=== PATIENT | female | born 1990 | race Caucasian/White ===

== ENCOUNTER 2021-02-10 11:28 | Emergency (ER) | payer BC ==
[2021-02-10 11:58] VITALS: BP 130/74; PULSE 98
--- NOTE | 2021-02-10 13:50 | EDM.PDOC ---
ED HPI GENERAL MEDICAL PROBLEM - General Chief Complaint: ENT Problem Stated Complaint: TOOTH COMPLAINT\ CHEEK SWELLING Time Seen by Provider: 02/10/21 11:36 Source of Information: Reports: Patient History Limitations: Reports: No Limitations - History of Present Illness INITIAL COMMENTS - FREE TEXT/NARRATIVE: 30-year-old female presents the emergency department today with complaints of dental pain and abscess after being on clindamycin for 10 days. Per the patient's report over the past 1 year she has been treated for dental abscess on the lower right side of her jaw 3 times. She states that she saw her dentist approximately 10 days ago and was started on clindamycin 300 mg 4 times daily. She states that this morning she woke up with swelling noted to her right jaw and went to see her dentist. He immediately told her to come to the emergency department. She denies any fever, chills, nausea, vomiting or diarrhea associated with the swelling/abscess. 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 ED EXAM, ENT - Physical Exam Exam: See Below Exam Limited By: No Limitations General Appearance: Alert, WD/WN, Mild Distress Ears: Normal External Exam, Hearing Grossly Normal Nose: Normal Inspection Mouth/Throat: Normal Gums (Right lower lateral gumline), Normal Lips, Normal Oropharynx, Dental Abcess (Right lower jaw), Dental Tenderness (Right lower jaw), Other (Dental caries noted to tooth 48 and 47) Head: Atraumatic Neck: Normal Inspection, Supple Respiratory/Chest: No Respiratory Distress, Lungs Clear, Normal Breath Sounds, No Accessory Muscle Use, Chest Non-Tender Cardiovascular: Normal Peripheral Pulses, Regular Rate, Rhythm, No Edema, No Murmur GI/Abdominal: Normal Bowel Sounds, Soft, Non-Tender, No Distention (Female) Exam: Deferred Rectal (Female) Exam: Deferred Back: Normal Inspection Extremities: Normal Inspection Neurological: Alert, Oriented, Normal Cognition Psychiatric: Normal Affect, Normal Mood Skin: Warm, Dry, Intact, Normal Color, No Rash Lymphatic: No Adenopathy Course - Vital Signs Text/Narrative:: As stated above, patient presents with dental abscess to the right jaw. Originating from dental caries to tooth #47. Patient did see her dentist this morning and he told her to be evaluated in the emergency department. As stated above the patient has been taking clindamycin 300 mg 4 times daily for the past 10 days. Developed swelling to her right lower jaw this morning. Upon exam, the patient does have significant swelling noted to the right lower jaw. There is no erythema noted however. She is afebrile. She states it is tender and she has tried ice the area however this is not helped with the swelling. She is not having any shortness of breath or difficulty swallowing. I have ordered lab studies to include a CBC, CMP, magnesium and a C-reactive protein. Discussed the case with Dr. Hanley and he does not recommend imaging as it will not change the course of treatment. Of note, patient does have a significant penicillin allergy. Last Recorded V/S: Last Vital Signs Temp 98.3 F 02/10/21 11:30 Pulse 98 02/10/21 11:30 Resp 18 02/10/21 11:30 BP 130/74 02/10/21 11:30 Pulse Ox 97 02/10/21 11:30 - Orders/Labs/Meds Labs: Laboratory Tests 02/10/21 02/10/21 Range/Units 12:30 12:30 WBC 11.31 H (3.98-10.04) K/mm3 RBC 4.91 (3.98-5.22) M/mm3 Hgb 15.0 D (11.2-15.7) gm/dl Hct 45.6 H (34.1-44.9) % MCV 92.9 D (79.4-94.8) fl MCH 30.5 (25.6-32.2) pg MCHC 32.9 (32.2-35.5) g/dl RDW Std Deviation 46.8 H (36.4-46.3) fL Plt Count 213 (182-369) K/mm3 MPV 11.3 (9.4-12.3) fl Neut % (Auto) 73.2 H (34.0-71.1) % Lymph % (Auto) 16.4 L (19.3-51.7) % [place] % (Auto) 9.3 (4.7-12.5) % Eos % (Auto) 0.7 (0.7-5.8) Baso % (Auto) 0.2 (0.1-1.2) % Neut # (Auto) 8.29 H (1.56-6.13) K/mm3 Lymph # (Auto) 1.85 (1.18-3.74) K/mm3 [place] # (Auto) 1.05 H (0.24-0.36) K/mm3 Eos # (Auto) 0.08 (0.04-0.36) K/mm3 Baso # (Auto) 0.02 (0.01-0.08) K/mm3 Sodium 136 (136-145) mEq/L Potassium 3.5 (3.5-5.1) mEq/L Chloride 103 (98-107) mEq/L Carbon Dioxide 24 (21-32) mEq/L Anion Gap 12.5 (5-15) BUN 6 L (7-18) mg/dL Creatinine 0.7 (0.55-1.02) mg/dL Est Cr Clr Drug Dosing 112.20 mL/min Estimated GFR (MDRD) > 60 (>60) mL/min BUN/Creatinine Ratio 8.6 L (14-18) Glucose 93 (70-99) mg/dL Calcium 8.5 (8.5-10.1) mg/dL Magnesium 1.9 (1.8-2.4) mg/dL Total Bilirubin 0.6 (0.2-1.0) mg/dL AST 18 (15-37) U/L ALT 28 (14-59) U/L Alkaline Phosphatase 52 (46-116) U/L C-Reactive Protein 0.4 (<1.0) mg/dL Total Protein 8.4 H (6.4-8.2) g/dl Albumin 4.4 (3.4-5.0) g/dl Globulin 4.0 gm/dL Albumin/Globulin Ratio 1.1 (1-2) Meds: Medications Discontinued Medications Generic Name Dose Route Start Last Admin Trade Name Ad PRN Reason Stop Dose Admin Amoxicillin/Clavulanate Potassium 1 tab 02/10/21 14:47 02/10/21 15:01 Amoxicillin/Clavulanate K 875-125 Mg Tab PO 02/10/21 14:48 1 tab ONETIME ONE Administration Ketorolac Tromethamine 30 mg 02/10/21 14:43 02/10/21 15:01 Ketorolac 30 Mg/Ml Sdv IVPUSH 02/10/21 14:44 30 mg ONETIME ONE Administration - Re-Assessments/Exams Free Text/Narrative Re-Assessment/Exam: 02/10/21 14:43 Patient does have penicillin listed as an allergy. Initially discussed with her and she tells me that both of her parents have severe anaphylactic reaction to penicillin. And tells me upon further evaluation that she just spoke with her father on the phone and he tells her he has never had a reaction to penicillin and is not allergic. She states that her parents when she was 8 and this is what her mother had told her in the past. 02/10/21 14:46 Hematology reveals a WBC of 11.31, hemoglobin 15.0, hematocrit 45.6, platelet count 213 Chemistry reveals a sodium of 136, potassium 3.5, anion gap 12.5, BUN 6, creatinine 0.7, magnesium 1.9, C-reactive protein 0.4 Discussed the case with Dr. Hanley, and he recommends starting the patient on Augmentin 875 mg twice daily for 10 days. Patient will need close follow-up with her primary care provider. 02/10/21 14:57 Discussed the plan with the patient and she is agreeable to this. We will give her 1 Augmentin tablet and monitor her for approximately an hour and then she will be discharged home. 02/10/21 16:09 Patient tolerated the Augmentin without any signs or symptoms of allergic reaction. She will be discharged home with strong return precautions. Departure - Departure Time of Disposition: 16:10 Disposition: Home, Self-Care 01 Condition: Good Clinical Impression: Dental abscess - Discharge Information Prescriptions: Amoxicillin/Potassium Clav [Augmentin 875-125 Tablet] 1 each PO BID #19 tablet Instructions: Dental Abscess, [id number] Referrals: Estrella Tavarez MD [Primary Care Provider] - Forms: ED Department Discharge Additional Instructions: You were seen in the emergency department today with complaints of a dental abscess despite being on antibiotics for 10 days time. Lab studies were completed and they were essentially unremarkable. Your white blood cell count was just slightly elevated and your inflammatory markers were normal. You were given pain medication while in the emergency department as well as Augmentin which is an oral antibiotic. You tolerated this well without any signs of allergic reaction. I have sent a prescription to your pharmacy for Augmentin 875 mg to be taken twice daily with food for the next 10 days. You will need to follow-up with your primary care provider for reevaluation once you have completed your course of antibiotics. Should you develop any signs or symptoms of allergic reaction such as hives or difficulty breathing. Return to the emergency department immediately. Should you develop fever, chills, nausea, vomiting or diarrhea you should also be reevaluated at that time. Sepsis Event Note (ED) - Evaluation Sepsis Screening Result: No Definite Risk - Focused Exam Vital Signs: Vital Signs Temp Pulse Resp BP Pulse Ox 02/10/21 11:30 98.3 F 98 18 130/74 97
[2021-02-10] MEDS ORDERED: Ketorolac 30 MG/ML SDV IVPUSH ONE (14:43)
[2021-02-10] MEDS ORDERED: Amoxicillin/Clavulanate K 875-125 MG Tab PO ONE (14:47)
== END 2021-02-10 16:20 | disposition home or self-care (01) ==
LOC: JD.ED 11:28
DX: K04.7 Periapical abscess without sinus (principal); K02.9 Dental caries, unspecified; Z88.0 Allergy status to penicillin; Z88.8 Allergy status to other drugs, medicaments and biological substances
CPT/HCPCS: 36415; 80053; 83735; 85025; 86140; 96374; 99283; A9270; J1885

== ENCOUNTER 2021-02-18 21:24 | Emergency (ER) | payer BC ==
[2021-02-18 22:30] VITALS: BP 116/72
[2021-02-18] MEDS ORDERED: Sodium Chloride 0.9% 10 ML Syringe FLUSH PRN (23:10)
[2021-02-18] MEDS ORDERED: Ondansetron 4 MG/2 ML SDV IVPUSH ONE (23:10)
[2021-02-18] MEDS ORDERED: HYDROmorphone 0.5 MG/0.5 ML Syringe IVPUSH ONE (23:11)
[2021-02-18] MEDS ORDERED: Ketorolac 30 MG/ML SDV IVPUSH ONE (23:11)
[2021-02-18] MEDS ORDERED: Sodium Chloride 0.9% 1,000 ML IV SCH (23:15)
--- NOTE | 2021-02-19 01:23 | EDM.PDOC ---
ED HPI GENERAL MEDICAL PROBLEM - General Chief Complaint: Abdominal Pain Stated Complaint: ABDOMINAL PAIN Time Seen by Provider: 02/18/21 22:55 Source of Information: Reports: Patient History Limitations: Reports: No Limitations - History of Present Illness INITIAL COMMENTS - FREE TEXT/NARRATIVE: The patient presents with left flank and left sided abdominal pain. She has some nausea with it. She has no dysuria or hematuria. She has no history of kidney stones before. She says the pain comes in waves like contractions. She has no diarrhea. She still has her appendix and gallbladder. She has no fever, chills, cough, chest pain or shortness of breath. Onset: Sudden Duration: Hour(s): Location: Reports: Abdomen, Back Quality: Reports: Sharp Severity: Severe Improves with: Reports: None Worsens with: Reports: None Associated Symptoms: Reports: Nausea/Vomiting. 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: - Infectious Disease History Infectious Disease History: Reports: None - Past Surgical History HEENT Surgical History: Reports: Oral Surgery, Other (See Below) Other HEENT Surgeries/Procedures: wisdom teeth removed; root canal done due to abcessed tooth Female Surgical History: Reports: Section Musculoskeletal Surgical History: Reports: Other (See Below) Other Musculoskeletal Surgeries/Procedures:: none Social & Family History - Family History Family Medical History: No Pertinent Family History Oncologic: Reports: Colon - Tobacco Use Tobacco Use Status *Q: Current Every Day Tobacco User Years of Tobacco use: 12 Packs/Tins Daily: 0.5 - Caffeine Use Caffeine Use: Reports: Coffee - Recreational Drug Use Recreational Drug Use: No - Living Situation & Occupation Living situation: Reports: ED ROS GENERAL - Review of Systems Review Of Systems: See Below Constitutional: Reports: No Symptoms HEENT: Reports: No Symptoms Respiratory: Reports: No Symptoms Cardiovascular: Reports: No Symptoms Endocrine: Reports: No Symptoms GI/Abdominal: Reports: Abdominal Pain, Nausea. Denies: Diarrhea, Vomiting : Reports: Flank Pain Musculoskeletal: Reports: Back Pain ED EXAM, GI/ABD - Physical Exam Exam: See Below Exam Limited By: No Limitations General Appearance: Alert, No Apparent Distress Ears: Normal External Exam Nose: Normal Inspection Head: Atraumatic, Normocephalic Neck: Normal Inspection Respiratory/Chest: No Respiratory Distress, Lungs Clear, Normal Breath Sounds Cardiovascular: Regular Rate, Rhythm, No Edema, No Murmur GI/Abdominal Exam: Soft, No Organomegaly, No Mass, Tender (Mild tenderness to the left lower abdomen) Back Exam: No: CVA Tenderness (L) Extremities: Normal Inspection Neurological: Alert, Oriented, No Motor/Sensory Deficits Course - Vital Signs Last Recorded V/S: Last Vital Signs Temp 99.0 F 02/18/21 22:28 Pulse 84 02/18/21 22:28 Resp BP 116/72 02/18/21 22:28 Pulse Ox 100 02/18/21 22:28 - Orders/Labs/Meds Orders: Active Orders 24 hr Category Date Time Status Peripheral IV Care [RC] . DIRECTED Care 02/18/21 23:11 Active Abdomen Pelvis wo Cont [CT] Stat Exams 02/18/21 23:10 Taken Sodium Chloride 0.9% [Normal Saline] 1,000 ml Med 02/18/21 23:15 Active IV ASDIRECTED Sodium Chloride 0.9% [Saline Flush] Med 02/18/21 23:10 Active 10 ml FLUSH ASDIRECTED PRN ED Antiemetic Medication Reflex [OM.PC] Stat Oth 02/18/21 23:10 Ordered Peripheral IV Insertion Adult [OM.PC] Stat Oth 02/18/21 23:10 Ordered Medication Orders Sodium Chloride (Normal Saline) 1,000 mls @ 125 mls/hr IV ASDIRECTED ASHISH Last Admin: 02/18/21 23:42 Dose: 125 mls/hr Documented by: OSIEL Sodium Chloride (Sodium Chloride 0.9% 10 Ml Syringe) 10 ml FLUSH ASDIRECTED PRN PRN Reason: Keep Vein Open Last Admin: 02/18/21 23:42 Dose: 10 ml Documented by: OSIEL Labs: Laboratory Tests 10/04/2902/18/21 02/18/21 Range/Units 23:40 23:40 23:40 WBC 9.04 (3.98-10.04) K/mm3 RBC 4.40 (3.98-5.22) M/mm3 Hgb 13.6 (11.2-15.7) gm/dl Hct 40.1 (34.1-44.9) % MCV 91.1 (79.4-94.8) fl MCH 30.9 (25.6-32.2) pg MCHC 33.9 (32.2-35.5) g/dl RDW Std Deviation 43.7 (36.4-46.3) fL Plt Count 223 (182-369) K/mm3 MPV 10.4 (9.4-12.3) fl Neut % (Auto) 77.7 H (34.0-71.1) % Lymph % (Auto) 10.0 L (19.3-51.7) % [place] % (Auto) 8.2 (4.7-12.5) % Eos % (Auto) 3.7 (0.7-5.8) Baso % (Auto) 0.2 (0.1-1.2) % Neut # (Auto) 7.03 H (1.56-6.13) K/mm3 Lymph # (Auto) 0.90 L (1.18-3.74) K/mm3 [place] # (Auto) 0.74 H (0.24-0.36) K/mm3 Eos # (Auto) 0.33 (0.04-0.36) K/mm3 Baso # (Auto) 0.02 (0.01-0.08) K/mm3 Sodium 139 (136-145) mEq/L Potassium 3.8 (3.5-5.1) mEq/L Chloride 105 (98-107) mEq/L Carbon Dioxide 23 (21-32) mEq/L Anion Gap 14.8 (5-15) BUN 7 (7-18) mg/dL Creatinine 0.6 (0.55-1.02) mg/dL Est Cr Clr Drug Dosing 130.90 mL/min Estimated GFR (MDRD) > 60 (>60) mL/min BUN/Creatinine Ratio 11.7 L (14-18) Glucose 106 H (70-99) mg/dL Calcium 8.6 (8.5-10.1) mg/dL Total Bilirubin 0.4 (0.2-1.0) mg/dL AST 17 (15-37) U/L ALT 22 (14-59) U/L Alkaline Phosphatase 47 (46-116) U/L Total Protein 6.8 (6.4-8.2) g/dl Albumin 3.5 (3.4-5.0) g/dl Globulin 3.3 gm/dL Albumin/Globulin Ratio 1.1 (1-2) Lipase 82 (73-393) U/L HCG, Qual Negative (NEGATIVE) Urine Color (Yellow) Urine Appearance (Clear) Urine pH (5.0-8.0) Ur Specific [place] (1.005-1.030) Urine Protein (Negative) Urine Glucose (UA) (Negative) Urine Ketones (Negative) Urine Occult Blood (Negative) Urine Nitrite (Negative) Urine Bilirubin (Negative) Urine Urobilinogen (0.2-1.0) Ur Leukocyte Esterase (Negative) Urine RBC (0-5) /hpf Urine WBC (0-5) /hpf Ur Squamous Epith Cells (0-5) /hpf Urine Bacteria (FEW) /hpf Urine Mucus (FEW) /hpf 02/19/21 Range/Units 01:09 WBC (3.98-10.04) K/mm3 RBC (3.98-5.22) M/mm3 Hgb (11.2-15.7) gm/dl Hct (34.1-44.9) % MCV (79.4-94.8) fl MCH (25.6-32.2) pg MCHC (32.2-35.5) g/dl RDW Std Deviation (36.4-46.3) fL Plt Count (182-369) K/mm3 MPV (9.4-12.3) fl Neut % (Auto) (34.0-71.1) % Lymph % (Auto) (19.3-51.7) % [place] % (Auto) (4.7-12.5) % Eos % (Auto) (0.7-5.8) Baso % (Auto) (0.1-1.2) % Neut # (Auto) (1.56-6.13) K/mm3 Lymph # (Auto) (1.18-3.74) K/mm3 [place] # (Auto) (0.24-0.36) K/mm3 Eos # (Auto) (0.04-0.36) K/mm3 Baso # (Auto) (0.01-0.08) K/mm3 Sodium (136-145) mEq/L Potassium (3.5-5.1) mEq/L Chloride (98-107) mEq/L Carbon Dioxide (21-32) mEq/L Anion Gap (5-15) BUN (7-18) mg/dL Creatinine (0.55-1.02) mg/dL Est Cr Clr Drug Dosing mL/min Estimated GFR (MDRD) (>60) mL/min BUN/Creatinine Ratio (14-18) Glucose (70-99) mg/dL Calcium (8.5-10.1) mg/dL Total Bilirubin (0.2-1.0) mg/dL AST (15-37) U/L ALT (14-59) U/L Alkaline Phosphatase (46-116) U/L Total Protein (6.4-8.2) g/dl Albumin (3.4-5.0) g/dl Globulin gm/dL Albumin/Globulin Ratio (1-2) Lipase (73-393) U/L HCG, Qual (NEGATIVE) Urine Color Yellow (Yellow) Urine Appearance Clear (Clear) Urine pH 6.5 (5.0-8.0) Ur Specific [place] 1.015 (1.005-1.030) Urine Protein Negative (Negative) Urine Glucose (UA) Negative (Negative) Urine Ketones Negative (Negative) Urine Occult Blood Negative (Negative) Urine Nitrite Negative (Negative) Urine Bilirubin Negative (Negative) Urine Urobilinogen 0.2 (0.2-1.0) Ur Leukocyte Esterase Negative (Negative) Urine RBC Not seen (0-5) /hpf Urine WBC Not seen (0-5) /hpf Ur Squamous Epith Cells 0-5 (0-5) /hpf Urine Bacteria Not seen (FEW) /hpf Urine Mucus Few (FEW) /hpf Meds: Medications Generic Name Dose Route Start Last Admin Trade Name Freq PRN Reason Stop Dose Admin Sodium Chloride 1,000 mls @ 125 mls/hr 02/18/21 23:15 02/18/21 23:42 Normal Saline IV 125 mls/hr ASDIRECTED ASHISH Administration Sodium Chloride 10 ml 10/12/21 23:10 02/18/21 23:42 Sodium Chloride 0.9% 10 Ml Syringe FLUSH 10 ml ASDIRECTED PRN Administration Keep Vein Open Discontinued Medications Generic Name Dose Route Start Last Admin Trade Name Ad PRN Reason Stop Dose Admin Al Hydroxide/Mg Hydroxide 30 0 ml 02/19/21 01:56 ml/ Lidocaine HCl 15 ml PO 02/19/21 01:57 ONETIME ONE Famotidine 20 mg 02/19/21 01:55 Famotidine 20 Mg/2 Ml Sdv IVPUSH 02/19/21 01:56 ONETIME ONE Hydromorphone HCl 0.5 mg 02/18/21 23:11 02/18/21 23:42 Hydromorphone 0.5 Mg/0.5 Ml Syringe IVPUSH 02/18/21 23:12 0.5 mg ONETIME ONE Administration Ketorolac Tromethamine 30 mg 02/18/21 23:11 02/18/21 23:42 Ketorolac 30 Mg/Ml Sdv IVPUSH 02/18/21 23:12 30 mg ONETIME ONE Administration Ondansetron HCl 4 mg 02/18/21 23:10 02/18/21 23:42 Ondansetron 4 Mg/2 Ml Sdv IVPUSH 02/18/21 23:11 4 mg ONETIME ONE Administration - Re-Assessments/Exams Free Text/Narrative Re-Assessment/Exam: 02/19/21 01:21 I ordered an IV NS at 125mL/hr, toradol 30mg IV, zofran 4mg IV, and dilaudid 0.5mg IV, labs, UA and a CT of her abdomen and pelvis without contrast. Her CBC and CMP look good. Her lipase is normal. Her HCG is negative. I am waiting on the CT. Vrad his having long turn around. 02/19/21 02:[address] shows findings consistent with gastritis of the distal gastric body and gastric antrum. No perforation No nephrolithiasis or hydronephrosis. She has a dental abscess and has been taking tylenol and motrin around the clock for a few days. That is what has caused the gastritis. She did not notice any black or tarry stools. She may have some after today because she did take pepto. I will give her pepcid 20mg IV here and a GI cocktail. I will have her take prilosec daily for 2 weeks and I will give her some hydrocodone for the dental pain. I want her to stop all NSAIDs at this time. Departure - Departure Time of Disposition: 02:15 Disposition: Home, Self-Care 01 Condition: Good Clinical Impression: Gastritis Qualifiers: Gastritis type: unspecified gastritis Chronicity: acute Gastritis bleeding: without bleeding Qualified Code(s): K29.00 - Acute gastritis without bleeding - Discharge Information *PRESCRIPTION DRUG MONITORING PROGRAM REVIEWED*: Not Applicable *COPY OF PRESCRIPTION DRUG MONITORING REPORT IN PATIENT MAGDI: Not Applicable Referrals: Estrella Tavarez MD [Primary Care Provider] - 1 Week Forms: ED Department Discharge Additional Instructions: Take prilosec 20mg daily for 2 weeks. You can buy that over the counter. Do not take any antiinflammatories such as ibuprofen, aleve, motrin, etc. You can take tylenol and hydrocodone as needed. You can also take some maalox. Follow up with your provider within a week. Please return if you are worse. Sepsis Event Note (ED) - Focused Exam Vital Signs: Vital Signs Temp Pulse BP Pulse Ox 02/18/21 22:28 99.0 F 84 116/72 100 - My Orders Last 24 Hours: My Active Orders 02/18/21 23:10 Abdomen Pelvis wo Cont [CT] Stat Sodium Chloride 0.9% [Saline Flush] 10 ml FLUSH ASDIRECTED PRN ED Antiemetic Medication Reflex [OM.PC] Stat Peripheral IV Insertion Adult [OM.PC] Stat 02/18/21 23:11 Peripheral IV Care [RC] . DIRECTED 02/18/21 23:15 Sodium Chloride 0.9% [Normal Saline] 1,000 ml IV ASDIRECTED - Assessment/Plan Last 24 Hours: My Active Orders 02/18/21 23:10 Abdomen Pelvis wo Cont [CT] Stat Sodium Chloride 0.9% [Saline Flush] 10 ml FLUSH ASDIRECTED PRN ED Antiemetic Medication Reflex [OM.PC] Stat Peripheral IV Insertion Adult [OM.PC] Stat 02/18/21 23:11 Peripheral IV Care [RC] . DIRECTED 02/18/21 23:15 Sodium Chloride 0.9% [Normal Saline] 1,000 ml IV ASDIRECTED
[2021-02-19] MEDS ORDERED: Famotidine 20 MG/2 ML SDV IVPUSH ONE (01:55)
[2021-02-19] MEDS ORDERED: Alum Hydrox/Mag Hydrox/Simeth 30 ML, Lidocaine 2% 15 ML PO ONE ×2 (01:56)
[2021-02-19 02:34] VITALS: PULSE 81
--- NOTE | 2021-02-19 08:01 | CT ---
CT abdomen and pelvis Technique: Multiple axial sections were obtained from above the dome of the diaphragm inferiorly through the pubic symphysis. Intravenous and oral contrast were not utilized. Study has been performed as a ureteral stone protocol. Reconstructed coronal and sagittal images were obtained. Comparison: No prior abdominal imaging is available. Findings: Right and left kidneys show no abnormal calcifications. No hydronephrosis is seen. Ureters show no obstructing calculi. Visualized lung bases show slight left basilar atelectasis. Liver contains no focal abnormality. Spleen size is normal. Adrenal glands show no nodule. Pancreas shows no focal abnormality. There is possible wall thickening within the body and antrum of the stomach raising the possibility of mild gastritis. Abdominal aorta shows no aneurysm. No retroperitoneal adenopathy is seen. Gallbladder contains no calcified gallstones. No mesenteric abnormalities are seen. Appendix shows no focal abnormality. No pelvic mass or adenopathy is seen. Bone window settings were reviewed which appear within normal limits for the patient's age. Impression: 1. No renal calculi, ureteral dilatation or ureteral stone is seen. 2. Questionable wall thickening within the body and antrum of the stomach and difficult to exclude mild gastritis if patient has correlating symptoms. 3. No additional abnormality is appreciated on noncontrast CT study of the abdomen and pelvis. Diagnostic code #3 I agree with preliminary report from [facility], finalized on 02/19/21, 2:45 AM CDT, code 1
== END 2021-02-19 02:25 | disposition home or self-care (01) ==
LOC: JD.ED 21:24
DX: K29.00 Acute gastritis without bleeding (principal); Z91.048 Other nonmedicinal substance allergy status; Z72.0 Tobacco use
CPT/HCPCS: 36415; 74176; 74176-26; 80053; 81001; 83690; 84703; 85025; 96374; 96375; 99284-25; A9270-GY; J1170; J1885; J2405; J3490; J7030